=== PATIENT | male | born 1935 | race Caucasian/White ===

== ENCOUNTER 2016-05-10 12:02 | Observation (INO) | payer MEDICARE ==
[~2016-05-10] VITALS: Ht 177.8 cm; Wt 69.5 kg
[~2016-05-10 12:02] MED LIST: ASPI-973 PO
[2016-05-10 12:19] VITALS: BP 143/78; PULSE 85; RESP 16; O2SAT 95
--- NOTE | 2016-05-10 12:31 | ED.REPORT ---
HPI-Chest Pain 40 and Over Date of Service May 10, 2016 ED Provider: Doc,Ed MD Patient is a 81 year old male who presents to the ER via EMS complaining of intermittent chest pain. Pain began early this morning and increases with exertion. Pain became steady and radiated from the left to right side. As patient rested the pain subsided. Pt describes pain as a "small, sharp, pricking sensation." Pt went to [facility] and was sent here by Dr. Alfred Leonard. Pt also reports cough and mild congestion. Pt denies cough, fever, cold symptoms. He does not have a history of cardiac disease. Nursing Notes Stated Complaint: CHEST PAIN Chief Complaint: Chest Pain Nursing Notes Reviewed: Yes Allergies: Coded Allergies: No Known Allergies (Unverified , 05/10/16) Scheduled Aspirin (Aspirin) 81 Mg Tablet 81 MG PO DAILY General Time Seen by MD: 12:31 Chief Complaint Chest pain Hx Obtained From: Patient Arrived By: Ambulance Sudden in Onset?: Yes Onset Occurred: 1 - 4 hours ago Symptom Duration: Since onset Quality: Sharp, Stabbing Radiation: : Back Severity: Current: No pain currently Recent Healthcare: Recent doctor visit Past Medical History Past Medical History Denies: Diabetes mellitus, Hypertension Smoking History Unknown if Ever Smoker Social History Lives in [place] Other Social History: Ambulatory Status Independent Review of Systems Review of Systems Note: chest congestion Constitutional: Denies: Fever Respiratory: Reports: Non-productive cough Cardiovascular: Reports: Chest pain Complete sys rev & neg: except as marked. Physical Exam Initial Vital Signs Vital Signs (First) Date Time Temp Pulse Resp B/P Pulse Ox O2 Delivery O2 Flow Rate FiO2 05/10/16 12:19 36.7 85 16 143/78 95 Room Air Initial VS: Reviewed Head / Eyes: Atraumatic, Normocephalic, PERRL ENT: Mucous membranes moist, Conjunctiva normal, No scleral icterus Neck: Supple, Non-tender, Full range of motion Skin: Warm, Dry, No cyanosis Neurologic: Alert, Oriented, Nonfocal Psychiatric: Mood/affect normal, Behavior normal, Normal thought content General/Constitutional: Awake, Alert Respiratory / Chest: Atraumatic, Breath sounds NL, Breath sounds = bilat, No respiratory distress Cardiovascular: Regular rhythm, Heart sounds NL, No gallop, No murmurs, No rubs Abdomen: Atraumatic, Soft, Non-tender Interpretation & Diagnostics Lab Results Interpretation Result Diagram: 05/10/16 1227 05/10/16 1227 Test 05/10/16 12:27 White Blood Count 3.3th/mm3 (3.8-10.1) Red Blood Count 3.50mil/mm3 (4.40-5.80) Hemoglobin 10.8g/dL (13.8-17.2) Hematocrit 32.9% (41.0-50.0) Mean Corpuscular Volume 94.0fL (81-100) Mean Corpuscular Hemoglobin 30.9pg (27.0-35.0) Mean Corpuscular Hemoglobin Concent 32.8% (32.0-37.0) Red Cell Distribution Width 14.9% (12.3-15.4) Platelet Count 208bil/L (150-400) Neutrophils (%) (Auto) 51.0% (40-74) Lymphocytes (%) (Auto) 37.5% (14-46) Monocytes (%) (Auto) 8.5% (4-12) Eosinophils (%) (Auto) 2.4% (0-5) Basophils (%) (Auto) 0.6% (0-3) Sodium Level 137mEq/L (134-144) Potassium Level 4.8mEq/L (3.5-5.2) Chloride Level 98mEq/L (97-108) Carbon Dioxide Level 27mmol/L (18-29) Blood Urea Nitrogen 22mg/dL (8-27) Creatinine 0.72mg/dL (0.76-1.27) Estimat Glomerular Filtration Rate 111mL/min (>59) Glucose Level 102mg/dL (60-99) Calcium Level 9.2mg/dL (8.5-10.1) Magnesium Level 2.2mg/dL (1.6-2.6) Total Bilirubin 0.3mg/dL (0.0-1.2) Aspartate Amino Transf (AST/SGOT) 20U/L (0-50) Alanine Aminotransferase (ALT/SGPT) 13U/L (0-44) Alkaline Phosphatase 53U/L (25-160) Troponin T < 0.010ug/L (0.0-0.011) Total Protein 8.4g/dL (6.4-8.4) Albumin 3.7g/dL (3.4-5.0) Hold John Top Tube Received (Received) ECG Interpretation Time: 12:18 Interpreted by: ED physician Normal ECG Interpretation: Normal sinus rhythm (rate 80) Re-Eval/Medical Decision Time of Eval: 13:43 Re-Evaluation/Progress Note: Pt rechecked. Informed pt of need for admission. Pt understands and agrees with plan for admission. All questions addressed. Consultation : Referral / Consult Name: Osvaldo Tony MD Consulted With: Hospitalist Call Returned at: 13:44 Set Up Inspector: Will see patient, Agrees with eval, Accepts admit Counseled Regarding: Diagnosis, Lab results, Need for admission Discharge & Departure Primary Impression: Chest pain Chest pain type: unspecified Qualified Code: R07.9 - Chest pain, unspecified Disposition: ADMITTED TO HOSPITAL Discharge Condition All VS Reviewed: Yes Condition: Stable Referrals: Lupe Sanders (PCP) Scribe Attestation Portion of this note were transcribed by Deedee De La Rosa and Mike Tubbs. I, Dr. Gtz, personally performed the history, physcial exam, and medical decision- making: I reviewed and confirmed the accuracy for the information in the transcribed note. Signed by: mario Moyer, 05/06/16 [id number] copies to: Lupe Sanders Kirk H MD May 10, 2016 12:31 MIKE TUBBS May 10, 2016 12:45 MIKE TUBBS May 10, 2016 12:45
[2016-05-10 12:36] LABS: BASOPHILS % (AUTO) 0.6 % (0-3); EOSINOPHILS % (AUTO) 2.4 % (0-5); MONOCYTES % (AUTO) 8.5 % (4-12); Mean Corpuscular Hemoglobin 30.9 pg (27.0-35.0); Platelet Count 208 bil/L (150-400)
[2016-05-10 13:18] LABS: Magnesium 2.2 mg/dL (1.6-2.6)
[2016-05-10 13:20] LABS: TROPONIN T < 0.010 ug/L (0.0-0.011)
[2016-05-10] MEDS ORDERED: Ondansetron 2 mg/mL 2 mL Inj IVPUSH PRN ×2 (13:45→13:50)
[2016-05-10] MEDS ORDERED: Alum-Mag Hydrox-Simeth 30 mL Suspension PO PRN ×2 (13:45→13:50)
[2016-05-10] MEDS ORDERED: Atropine 1 mg/10 mL (Code) Syringe IVPUSH PRN (13:45)
[2016-05-10] MEDS ORDERED: Polyethylene Glycol (PEG) 17 Gm Powder PO PRN (13:45)
[2016-05-10] MEDS ORDERED: Senna-Docusate 8.6-50 mg Tablet PO PRN (13:45)
--- NOTE | 2016-05-10 13:52 | DRSVH ---
PROCEDURE: X-RAY CHEST, TWO VIEWS ([id number]) INDICATIONS: chest pain TECHNIQUE: 2 views of the chest were acquired. COMPARISON: None. FINDINGS: Surgical changes and devices: None. Lungs and pleura: No pleural effusions or pneumothorax. Lungs are clear. Mediastinum: Mediastinal contours are normal. Heart size is normal. Bones and chest wall: No suspicious bony abnormalities. Soft tissues appear unremarkable. IMPRESSION: No acute disease Dictated by: Marcial Ortiz M.D. on 05/10/2016 at 13:50 Approved by: Marcial Ortiz M.D. on 05/10/2016 at 13:50
[2016-05-10] MEDS ORDERED: MELA1TAB16 PO (13:55)
--- NOTE | 2016-05-10 14:06 | PCM.HPMED ---
Subjective Date of Service May 10, 2016 Primary Provider: Admitting Physician: Primary Care Physician: Ian Velazco MD Attending Physician: Admit Status: From the Emergency Department, 23-Hour Observation Chief Complaint: Chest Pain History of Present Illness: Patient is an 81 year old male with no past medical history who presents to the ER at [facility] complaining of chest pain. Pt states the pain began this morning. He states the pain is located in the center of his chest and seems to radiate to the left side of his chest. Pt denies associated shortness of breath, diaphoresis, nausea, palpitations, headache, and dizziness. Pt states his chest pain seems to last for several minutes and is exacerbated with activity and partially relieved with rest. Pt states the pain is a dull sensation. Pt does report recent cough and chest congestion. He denies any fever or chills. Pt has no other complaints or concerns at this time. Review of Systems: All systems reviewed and are negative except for what has already been mentioned in the HPI. Allergies Coded Allergies: No Known Allergies (Unverified , 05/10/16) Home Medications 1. Aspirin 81 mg PO daily PMH None Surgical History None Family History Pt denies any family history of CAD or AL. Social History Hx Alcohol Use: Yes (DAILY) Hx Substance Use: No Hx Tobacco Use: No Smoking Status: Never Smoker Exam Vital Signs Vital Sign - Last Date Time Temp Pulse Resp B/P Pulse Ox O2 Delivery O2 Flow Rate FiO2 05/10/16 12:19 36.7 85 16 143/78 95 Room Air Exam GENERAL: NAD, Pt laying in bed comfortably HEENT: AT/NC, PERRLA, EOMI, Mucus Membranes are moist CARDIAC: RRR; No M/R/G PULM: CTAB; No wheezes or rhonchi bilaterally ABD: Soft, Nontender, Nondistended, Positive bowel sounds in all quadrants, No Hepatosplenomegaly appreciated EXT: No C/C/E; No calf tenderness bilaterally SKIN: Warm, Dry, [place], and Intact NEURO: Alert and oriented x3; Following all commands PSYCH: Normal mood and affect Lab and Diagnostics Result Diagram: 05/10/16 1227 05/10/16 1227 X-Rays, CTs and MRIs X-RAY CHEST, TWO VIEWS INDICATIONS: chest pain TECHNIQUE: 2 views of the chest were acquired. COMPARISON: None. FINDINGS: Surgical changes and devices: None. Lungs and pleura: No pleural effusions or pneumothorax. Lungs are clear. Mediastinum: Mediastinal contours are normal. Heart size is normal. Bones and chest wall: No suspicious bony abnormalities. Soft tissues appear unremarkable. IMPRESSION: No acute disease 12-lead ECG EKG shows no ST or T wave changes indicative of myocardial ischemia. Assessment & Plan Patient is an 81 year old male with no past medical history who is admitted to hospital for chest pain. 1. Chest Pain - Rule out ACS - Admit under observation as anticipated LOS is less than 48 hours - Check serial cardiac enzymes q 6 hours x3 - Start Aspirin 81 mg PO daily - Start SL Nitroglycerin PRN for chest pain - Start Metoprolol 12.5 mg PO BID - Supplemental O2 to keep SpO2 greater than 92% - IV Morphine PRN for refractory chest pain - Will order a Lipid Panel for the AM - Will order an ECHO now - Will order a Lexiscan for the morning - Telemetry monitoring 2. Elevated Blood Pressure - Pt does not have a known hx of Hypertension however his BP is elevated today - Will start Metoprolol 12.5 mg PO BID, hold tonights dose for stress test in AM - Monitor BP closely 3. Prophylaxis - Lovenox 4. Disposition - Anticipate discharge to home in AM Osvaldo Tony MD May 10, 2016 14:06
[2016-05-10 15:17] VITALS: BP 143/81; PULSE 70; RESP 14; O2SAT 98
[2016-05-10 15:45] VITALS: PULSE 71
[2016-05-10] MEDS: 0.9% Sodium Chloride 1,000 ML IV SCH (15:55)
--- NOTE | 2016-05-10 16:10 | NUR ---
Admit Patient report called by Marla Rojas in ED. Patient arrived to room 3020 at 1500 via gurney and was able to self transfer to bed independently with no problems. Patient oriented to room, staff, call light system, television remote, bed controls, and visiting hours. Patient has a scabbed over scratch on right thumb. Patient denied any chest pain or discomfort and any pain. Patient administered NS@80mL/hr. Patient alert orientedX4. Patient has a wallet and was offered to place in safe, but wants to keep with him in room.
--- NOTE | 2016-05-10 16:16 | NUR ---
Metoprolol held Patient having NM stress test in the morning and Metoprolol was held for test.
--- NOTE | 2016-05-10 16:25 | PCM.CHPCAR ---
Consult Subjective Date of service May 10, 2016 Date of admit May 10, 2016 at 14:05 Provider Requesting Consult Primary Care Physician Primary Care Provider: Ian Velazco MD Chief Complaint # Crescendo Angina # HLD History of Present Illness BP:143/78mmHg HR: 70-85bpm 12 Lead ECG: Mr. Joe Amaral is a pleasant 81 y/o M with no previous cardiac history. The patient is a patient of Dr. Alfred Leonard at the [facility] and is transferred to the [facility] via EMS and admitted through the ED for evaluation of his SS chest pressure and HOLLIS. The patient relates a 3 wk hx of increasing HOLLIS while walking up a hill close to his home [place] [address]. The patient relates that today he was walking up a hill close to his home when he developed a 7/10 SSC Pressure and dyspnea that caused him to stop in his tracks. He stopped and he stood there and rested for several minutes and the SSC Pressure resolved. He turned and walked home without further CP. The patient then drove himself to the [facility] where he was seen urgently by Dr. Alfred Leonard. Mr. Amaral reports that he developed 1-2/10 SSC Pressure when walking from his car to the [facility]. The patient was subsequently taken from the [facility] to the [facility] and admitted with Crescendo Angina. The patient has remained completely chest pain pain free and comfortable in bed since arriving here at [facility]. Labs 05/10/2016 1. CBC: H/H 10.8/32.9 2. CMP: Na+ 137, K+ 4.8, B/C: 22/0.72 3. Troponin: Neg x 1 2D Echo (Pending 05/10/2016) Review of Systems Review of Systems Review of Systems Note: Constitutional: Denies: Fever Respiratory: Reports: Non-productive cough, chest congestion Cardiovascular: Reports: Chest pain Complete sys rev & neg: except as marked. PMH Past Medical History 1. R hand injury with loss of finger and mobility of fingers. Scheduled Aspirin (Aspirin) 81 Mg Tablet 81 MG PO DAILY (Reported) Melatonin/Pyridoxine (Melatonin 5 mg Tablet) 1 Each Tablet 1 EACH PO HS ( Reported) Current Inpatient Medications Current Medications Al Hydrox/Mg Hydrox/Simethicone 30 ml Q6 PRN PO; Start 05/10/16 at 13:50; Stop 05/10/16 at 14:18; Status DC Ondansetron HCl Dose range: 4 mg to 8 mg Q4H PRN IVPUSH; Start 05/10/16 at 13:50 ; Stop 05/10/16 at 14:19; Status DC Acetaminophen 975 mg Q6H PRN PO; Start 05/10/16 at 13:50; Stop 05/10/16 at 14:19 ; Status DC Enoxaparin Sodium 40 mg DAILY SUBQ; Start 05/10/16 at 14:00 Sodium Chloride 10 ml 10 ml NAREN IVFLUSH; Start 05/10/16 at 16:30 Sodium Chloride 1,000 ml @ 80 mls/hr [id number] IV Last administered on 05/10/16t 15:55; Admin Dose 80 MLS/HR; Start 05/10/16 at 13:44 Aspirin 81 mg DAILY PO; Start 05/11/16 at 08:30 Al Hydrox/Mg Hydrox/Simethicone 30 ml Q6H PRN PO; Start 05/10/16 at 13:45 Ondansetron HCl 4-8 mg prn nausea Q4H PRN IVPUSH; Start 05/10/16 at 13:45 Senna 1 tablet BID PRN PO; Start 05/10/16 at 13:45 Polyethylene Glycol 17 gm DAILY PRN PO; Start 05/10/16 at 13:45 Acetaminophen 325 mg Q6H PRN PO; Start 05/10/16 at 13:45 Nitroglycerin 0.4 mg Q5MIN PRN SL; Start 05/10/16 at 13:45 Morphine Sulfate 1-5 mg prn pain not relie... Q5M PRN IVPUSH; Start 05/10/16 at 13:45 Atropine Sulfate See above Q5MIN PRN IVPUSH; Start 05/10/16 at 13:45 Metoprolol Tartrate 12.5 mg BID PO; Start 05/10/16 at 13:55 Allergies: Coded Allergies: No Known Allergies (Unverified , 05/10/16) Social History Hx Alcohol Use: Yes (2 drinks a day)Hx Substance Use: NoHx Tobacco Use: No Smoking Status: Never Smoker Exam Vital Signs Vital Sign - Last Date Time Temp Pulse Resp B/P Pulse Ox O2 Delivery O2 Flow Rate FiO2 05/10/16 15:17 36.7 70 14 143/81 98 Room Air Objective General/Constitutional: Awake, Alert, Cooperative in NAD Head NC/AT Eyes: NON Icteric Oropharynx: No posterior pharyngeal erythema, mucous membranes moist. Neck: Supple, no JVD or HJR Respiratory / Chest: CTA Cardiovascular: RRR, NML S1/S2, no S3/S4, 2/6 ELIAN at the LVA Skin: Warm, Dry, or good turgor, no masses, rashes, No cyanosis Neurologic: Alert, Oriented, Nonfocal Psychiatric: Mood/affect normal, Behavior normal, Normal thought content Abdomen: Soft, flat, Non-tender, without masses, LKS LOCKS TENDER, + NABS all 4 quads, Extrems: no pretibial edema, warm dry, well perfused. Lab and Diagnostics Result Diagram: 05/10/16 1227 05/10/16 1227 Assessment & Plan Assessment # Kyleendo Angina: Mr. Amaral is an 81 y/o M with no prior history of heart disease that is admitted with accelerating exertional chest pain. Recommendations: 1. ETT Stress Sestamibi to evaluate the patients chest pain and to evaluate for a myocardial perfusion defect. 2. Hold Metoprolol tomorrow morning for the ETT. 3. If ETT shows a myocardial perfusion defect, he will need a cardiac catheterization to evaluate his coronary anatomy. 4. STAT 12 Lead ECG if redevelops any chest discomfort. Cardiology Plan: Other (ETT Stress Sestamibi to evaluate for CP and to evaluate for Myocardial Perfusion defect.) Pain Evaluation: Adequate Pain Control VTE Prophylaxis Indicated: Meets Criteria for Anticoag Therapy VTE Prophylaxis: Sub-Q Enoxaparin Resuscitation Status: CPR: Attempt Resuscitation Brad Briceno PA-C May 10, 2016 16:25
[2016-05-10] MEDS: Sodium Chloride LOK Flush 10 mL Syringe IVFLUSH SCH (16:30)
[2016-05-10 17:13] VITALS: BP 165/89; PULSE 70; RESP 14; O2SAT 98
--- NOTE | 2016-05-10 17:39 | DRSVH ---
[facility] [address] [place] [place] [address] Echocardiogram Report Name: EPIFANIO FONSECA LStudy Date: 05/10/2016 Height: 70 in Hospital Exam Location: [facility] Weight: 160 lb Gender: Male BSA: 1.9 m2 : 1935 Age: 81 yrs BP: 143/78 mmHg Reason For Study: Chest pain Ordering Physician: Performed By: Brittany Lao Referring Physician: Key Velazco Interpretation Summary The left ventricle is normal in size. The ejection fraction is estimated to be 60-65%. The right ventricle is normal in size and function. There is mild mitral regurgitation. The aortic valve is moderately calcified. Leaflet mobility is mildly reduced. The peak aortic velocity is 273 m/sec. The aortic valve mean gradient is 14 mmHg. There is mild aortic stenosis. There is mild to moderate aortic regurgitation. There is mild tricuspid regurgitation. The right ventricular systolic pressure is estimated at 34 mmHg assuming a right atrial pressure of 3 mm Hg. The ascending aorta is mildly enlarged. Procedure: A two-dimensional transthoracic echocardiogram with color flow and Doppler was performed. There is no prior echocardiogram noted for this patient. The study quality was technically adequate. The patient was in normal sinus rhythm during the exam. Left Ventricle: The left ventricle is normal in size. Proximal septal thickening is noted. There is no echo evidence for significant left ventricular outflow tract obstruction. There is no thrombus. The ejection fraction is estimated to be 60-65%. There are no focal wall motion abnormalities. Spectral Doppler of the mitral valve is reversed, with an E/A wave ratio < 0.8. Spectral Doppler of the mitral valve is reversed, with an E/A wave ratio < 1.0. Right Ventricle: The right ventricle is normal in size and function. Atria: The left atrium is mildly dilated. The right atrium is normal in size. The interatrial septum is intact with no evidence for an atrial septal defect. There is no Doppler evidence for an interatrial shunt. Mitral Valve: The mitral valve leaflets are moderately calcified. The mitral valve chordae are thickened and/or calcified. There is mild mitral annular calcification. No significant mitral valve stenosis. There is mild mitral regurgitation. Aortic Valve: The aortic valve is trileaflet. The aortic valve is moderately calcified. Leaflet mobility is mildly reduced. The calculated aortic valve area is 1.4 cm2. The peak aortic velocity is 273 m/sec. The aortic valve mean gradient is 14 mmHg. There is mild aortic stenosis. There is mild to moderate aortic regurgitation. Tricuspid Valve: The tricuspid valve is normal. There is mild tricuspid regurgitation. The right ventricular systolic pressure is estimated at 34 mmHg assuming a right atrial pressure of 3 mm Hg. Pulmonic Valve: The pulmonic valve is not well seen, but is grossly normal. There is trace pulmonic regurgitation. Great Vessels: The aortic root is normal size. The ascending aorta is mildly enlarged. The aortic arch could not be visualized. The IVC is of normal diameter and collapses greater than 50% with a sniff. This suggests a low right atrial pressure of 3 mm Hg. Pericardium/ Pleura There is no pericardial effusion. MMode/2D Measurements & Calculations LVIDd: 4.7 cm LA dimension: 3.9 cm RA long axis LVOT diam LVIDs: 3.5 cm FS: 25.7 % LA A2 area: 23.0 cm RA area AoV Opening EPSS: 0.72 cm LA A4 area: 19.3 cm IVSd: 0.84 cm LA length (vol): 5.1 cm: 15.2 cm Ao root diam LVPWd: 0.87 cm LA vol: 73.9 ml RA vol LA vol index : 40.5 ml Aortic Jxn RA : 21.3 mm2 asc Aorta IVC diam: 1.6 cm Diam: 3.8 cm LV engel. diameter/BSA LV sys. diameter/BSA RVD1 (basal) TAPSE: 2.7 cm (cm/m^2): 2.5 (cm/m^2): 1.8 Doppler Measurements & Calculations Ao V2 max MV E max ian MV E/A: 0.76 TR max ian : 272.5 cm/sec : 77.2 cm/sec Med Peak E' Ian : 278.1 cm/sec Ao max PG MV A max ian TR max PG : 29.7 mmHg : 101.3 cm/sec E/E' med: 12.0 : 30.9 mmHg Ao mean PG MV P1/2t: 65.9 msec Pulm A Revs Dur PA V2 max : 14.0 mmHg : 70.0 cm/sec LVOT Max Ian MV A dur: 0.12 sec PA mean PG : 98.8 cm/sec PA Accel Time MIRIAN(I,D): 1.4 cm : 0.16 sec sev ratio AI P1/2t : 457.5 msec AI dec slope : 292.4 cm/s2c MV dec time MV P1/2t max ian Ao V2 mean LV V1 max PG : 0.23 sec : 171.6 cm/sec MVA(P1/2t): 3.3 cm2 Ao V2 VTI: 59.6 cm LV V1 VTI MIRIAN(V,D): 1.5 cm2 : 19.9 cm PA V2 mean MIRIAN indexed to BSA Pulm A Revs Dur - MV : 50.3 cm/sec (cm^2/m^2): 0.72 A Dur: -0.03 msec Reading Physician:PM
--- NOTE | 2016-05-10 21:34 | CONS ---
[address] [address] CONSULTATION REPORT PATIENT: EPIFANIO FONSECA : 1935 MR#: [id number] ADMIT: 05/10/2016 JOB ID: [id number] DATE OF SERVICE: 05/10/2016 REQUESTED BY: Dr. Tony, I saw and examined the patient. Please see Brad Briceno's notes for details. IMPRESSION: 1. Chest discomfort of uncertain etiology. 2. Hypercholesterolemia. 3. Mild aortic stenosis with mild to moderate aortic regurgitation. 4. Mild mitral regurgitation. 5. Anemia. PLAN: The cause of his chest discomfort remains uncertain. His cardiac enzymes and EKG were all normal. The patient has never smoked. He will undergo exercise stress sestamibi tomorrow to evaluate myocardial perfusion and risk stratification. Thank you for allowing me to participate in his care. KIEL
[2016-05-10 21:35] VITALS: BP 136/71; PULSE 63; RESP 16; O2SAT 100
[2016-05-10 23:02] VITALS: PULSE 69
[2016-05-11] MEDS: Sodium Chloride LOK Flush 10 mL Syringe IVFLUSH SCH ×2 (00:30→11:15)
[2016-05-11 01:02] VITALS: BP 142/70; PULSE 77; RESP 16; O2SAT 98
[2016-05-11] MEDS: 0.9% Sodium Chloride 1,000 ML IV SCH (04:37)
--- NOTE | 2016-05-11 05:04 | NUR ---
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 No c/o chest pain/pain/sob. Evening dose of Metoprolol held for Jeannie test in AM, will pass on to next shift.
[2016-05-11 05:08] VITALS: BP 128/65; PULSE 71; RESP 16; O2SAT 98
[2016-05-11 06:06] LABS: BASOPHILS % (AUTO) 0.7 % (0-3); EOSINOPHILS % (AUTO) 4.6 % (0-5); MONOCYTES % (AUTO) 10.2 % (4-12); Mean Corpuscular Volume 93.9 fL (81-100); NEUTROPHILS % (AUTO) 36.3 % (40-74); Platelet Count 212 bil/L (150-400)
[2016-05-11 07:26] LABS: TROPONIN T < 0.010 ug/L (0.0-0.011)
[2016-05-11 08:00] VITALS: PULSE 69
[2016-05-11 08:52] VITALS: BP 132/78; PULSE 75; RESP 17; O2SAT 98
--- NOTE | 2016-05-11 09:02 | PCM.PNCARD ---
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 Joe Amaral is a pleasant 81 y/o M with no previous cardiac history. The patient is a patient of Dr. Alfred Leonard at the [facility] and is transferred to the [facility] via EMS and admitted through the ED for evaluation of his SS chest pressure and HOLLIS. The patient relates a 3 wk hx of increasing HOLLIS while walking up a hill close to his home on [address]. The patient relates that today he was walking up a hill close to his home when he developed a 7/10 SSC Pressure and dyspnea that caused him to stop in his tracks. He stopped and he stood there and rested for several minutes and the SSC Pressure resolved. He turned and walked home without further CP. The patient then drove himself to the [facility] where he was seen urgently by Dr. Alfred Leonard. Mr. Amaral reports that he developed 1-2/10 SSC Pressure when walking from his car in the parking lot to the [facility] entrance. The patient was subsequently taken from the [facility] via ambulance to the [facility] and admitted for evaluation of his chest pain of unclear etiology. The patient has remained completely chest pain pain free and comfortable in bed since arriving here at [facility]. Labs: 05/11/2016 1. CMP: Na+ 138, K+ 4.5, B/C: 16 / 0.64 2. Total cholesterol 117, LDL 48.40, VLDL 17.60, HDL 51, triglycerides 88 3. Troponin: Neg x 2 4. CBC stable without significant change 2D Echo ( 05/10/2016) The left ventricle is normal in size. The ejection fraction is estimated to be 60-65%. The right ventricle is normal in size and function. There is mild mitral regurgitation. There is mild aortic stenosis. The aortic valve is moderately calcified. Leaflet mobility is mildly reduced. The peak aortic velocity is 273 m/sec. The aortic valve mean gradient is 14 mmHg. There is mild to moderate aortic regurgitation. There is mild tricuspid regurgitation. The right ventricular systolic pressure is estimated at 34 mmHg assuming a right atrial pressure of 3 mm Hg. The ascending aorta is mildly enlarged. Subjective: Patient reports that he is doing well without any type of chest discomfort overnight. He denies shortness of breath, PND/orthopnea, no palpitations, no dizziness, lightheadedness, presyncope or syncopal episodes, no lower extremity swelling. Additional Information: Constitutional: Denies: Fever Respiratory: Reports: Non-productive cough, chest congestion Cardiovascular: Reports: Chest pain Chest: Atraumatic, nontender to palpation Complete sys rev & neg: except as marked. Exam Vital Signs Vital Sign - Last Date Time Temp Pulse Resp B/P Pulse Ox O2 Delivery O2 Flow Rate FiO2 05/11/16 05:08 36.4 71 16 128/65 98 Room Air Intake and Output 05/10/16 05/10/16 05/11/16 Cumulative From/Thru 15:00 23:00 07:00 05/10/16 12:19 - 05/11/16 06:27 Intake Total 777 ml 1539 ml 2316 ml Output Total 400 ml 600 ml 1000 ml Balance 377 ml 939 ml 1316 ml Intake Oral 537 ml 400 ml 937 ml IV Total 240 ml 1139 ml 1379 ml Output Urine Total 400 ml 600 ml 1000 ml # Bowel Movements 1 1 Additional Information: General/Constitutional: Awake, Alert, Cooperative in NAD Head NC/AT Eyes: NON Icteric Oropharynx: No posterior pharyngeal erythema, mucous membranes moist. Tongue midline and mobile Neck: Supple, no JVD or HJR Respiratory / Chest: CTA Cardiovascular: RRR, NML S1/S2, no S3/S4, 2/6 ELIAN at the [facility] Skin: Warm, Dry, or good turgor, no masses, rashes, No cyanosis Neurologic: Alert, Oriented, Nonfocal Psychiatric: Mood/affect normal, Behavior normal, Normal thought content Abdomen: Soft, flat, Non-tender, without masses, [employer], + NABS all 4 quads, Extrems: no pretibial edema, warm dry, well perfused. Lab and Diagnostics Result Diagram: 05/11/1651905/11/16519 Assessment & Plan Assessment #Chest pain of unclear etiology: Mr. Amaral is an 81 y/o M with no prior history of heart disease that is admitted with chest pain of unclear mechanism. Recommendations: 1. ETT Stress Sestamibi today to evaluate the patients chest pain and to evaluate for a myocardial perfusion defect. 2. Hold Metoprolol this morning prior to the ETT. 3. If ETT shows a myocardial perfusion defect, he will need a cardiac catheterization to evaluate his coronary anatomy. Problems: Cardiology Plan: Other (ETT Stress Sestamibi to evaluate for CP and to evaluate for Myocardial Perfusion defect.) Pain Evaluation: Adequate Pain Control VTE Prophylaxis: Sub-Q Enoxaparin VTE Mechanical Devices: Intermittant Pneumatic CD Resuscitation Status: CPR: Attempt Resuscitation Brad Briceno PA-C May 11, 2016 09:02
--- NOTE | 2016-05-11 09:10 | NUR ---
all morning meds held for stress test pt off floor for testing
--- NOTE | 2016-05-11 11:29 | NUR ---
Social Work-initial assessment/readiness for discharge: Data:See initial assessment. pt is a 81 y/o male who was admitted on 05/10/16 for chest pain resolved per H&P. Pt's insurance is [employer] and PCP is Ian Velazco MD.EMR Reviewed. Pt's readmission score is 0. SW met with pt at bedside to discuss discharge planning, SW role explained. Pt is alert and oriented x3. Pt resides at home with his where he remains independent with ADLS. Pt does not use any DME and drives. Pt has no HH or SNF history. Pt has no [facility] care insurance or VA benefits. SW discussed DPOA/ advanced directive with pt, pt states he has completed this, SW encouraged pt to bring a copy into the hospital. Per RN notes, pt has been up independent in his room. Pt to have jenniffer scan today and may discharge later today. Pt states his son will provide transport home at discharge. Pt states he helps care for his at home, cooking cleaning, and managing her medications. Pt has neighbor assisting while he is gone.SW provided phone number and plan on white board in room. No anticipated discharge needs. SW will continue to follow if needs arise. Assessment:pt who is independent at baseline. Plan:Pt to discharge home when medically stable via POV. No anticipated discharge needs. SW will continue to follow if needs arise. JOSE RAUL Mckinley Addendum: 05/11/16 at 1133 by ARLETH WILLETT SS Amended: Links added.
--- NOTE | 2016-05-11 14:03 | DRSVH ---
PROCEDURE: 1 DAY TREADMILL STRESS TEST Rest and exercise myocardial perfusion SPECT with gated imaging and ejection fraction RADIOPHARMACEUTICAL: 7.6 mCi Tc-99m tetrafosmin IV at rest and 25.9 mCi Tc-99m tetrafosmin IV at pea k exercise. [id number] was performed. INDICATIONS: CHEST PAIN TECHNIQUE: Radiopharmaceutical was injected at peak stress test, and also at rest. SPECT images wer e obtained. SPECT myocardial perfusion images were displayed in short axis, horizontal long axis, an d vertical long axis views. Gated images were reviewed using [employer] software. COMPARISON: None. CARDIAC STRESS: A standard [place] treadmill exercise tolerance test was performed by the patient under the supervision of an attending staff. The patient exercised for 3 minutes and 33 seconds Hemodynamic data: There is normal blood pressure and somewhat accelerated heart rate response to ex ercise stress. Patient achieved 106% of maximum predicted heart rate at peak exercise. Symptoms: Patient reported chest pain in the right chest EKG: No diagnostic EKG changes of ischemia; rare ectopy FINDINGS: Raw data: There is good myocardial labeling by radiotracer. No significant motion artifacts. Left ventricle function: Gated images demonstrate normal left ventricle wall thickening. No segment al wall motion abnormality. Left ventricular end-diastolic volume is 100ccmL. Left ventricle stress ejection fraction is 63% ; normal values are above 45%. Myocardial perfusion: There is a very small area of mildly decreased uptake affecting the basal infe roseptal wall that appears fixed on the rest and stress images. This area moves/thickens on the gate d images and is more likely related to attenuation artifact. No other imaging defects are appreciate d. IMPRESSION: 1. Appropriate blood pressure and somewhat accelerated heart rate response to exercise. 2. The patient reported mild chest discomfort affecting the right parasternal area. There were no si gnificant ECG changes with stress. 3. No scintigraphic evidence for significant areas of myocardial ischemia at the level of stress achi eved. 4. Normal left ventricular size and systolic function. Dictated by: Heather Serna M.D. on 05/11/2016 at 14:01 Approved by: Heather Serna M.D. on 05/11/2016 at 14:01
[2016-05-11 14:20] VITALS: BP 128/79; PULSE 75; RESP 16; O2SAT 98
--- NOTE | 2016-05-11 15:25 | PCM.DIMED ---
Dave Lucas DO 05/11/16 1525: Discharge Instructions Date of Service May 11, 2016 Dates of Hospitalization May 10, 2016 at 14:05 Discharge Diagnosis Discharge Diagnosis 1. Chest Pain, resolved -Based upon your vitals, EKG, myocardial ischemic biomarkers (troponin), and stress testing. You do not have a heart attack. There are no evidences of coronary ischemia. -You should however, need to contact your primary care provider within 1wk for a hospital follow-up visit. We like to ensure you are doing well -Continue to take your aspirin 81mg daily 2. Elevated Blood Pressure, resolved Test Results Lipid panel as below Triglycerides 88, normal is 0-149 Cholesterol 117 LDL cholesterol calculated 48.4, normal is 0-99 VLDL cholesterol 17.46 HDL cholesterol 51, normal is greater than 39 Cholesterol/HDL ratio 2.29, normal is 0-4.4 Diet Heart Healthy Activity No restrictions Call your provider Shortness of breath, Chest pain, Weakness (unilateral) Patient Instructions Follow-up Provider: Ian Velazco MD Follow-up with PCP in: 1 week Osvaldo Tony MD 05/12/16 1053: Dave Lucas DO May 11, 2016 15:25 Osvaldo Tony MD May 12, 2016 10:53
--- NOTE | 2016-05-11 15:40 | NUR ---
discharge paperwork reviewed, no questions at this time pt denies pain/distress pt chooses to walk downstairs to private car to return home on [address]
--- NOTE | 2016-05-11 15:48 | NUR ---
Social Work-discharge: Data:EMR reviewed. Pt is on day 1 of hospitalization for chest pain. Pt is ready to discharge home. SW confirmed with pt of plan for home, no needs. Pt's friend to provide transport home. No discharge needs identified. All updated and agreeable to plan. Assessment:Pt who is independent at baseline. Plan:Pt to discharge home today via POV. No discharge needs identified. All updated and agreeable to plan. JOSE RAUL Mckinley
[2016-05-11 17:08] VITALS: BP 126/78; PULSE 77; RESP 17; O2SAT 96
--- NOTE | 2016-05-12 21:30 | PCM.DC.MED ---
Discharge Summary Date of Service May 12, 2016 Dates of Hospitalization Date of Hospital Admission May 10, 2016 at 14:05 Date of Discharge: May 12, 2016 Providers: Admitting Physician: Osvaldo Tony MD Primary Care Physician: Ian Velazco MD Attending Physician: Osvaldo Tony MD Diagnosis at Time of Discharge Diagnosis at Time of Discharge 1. Chest Pain, resolved -Based upon your vitals, EKG, myocardial ischemic biomarkers (troponin), and stress testing. You do not have a heart attack. There are no evidences of coronary ischemia. -You should however, need to contact your primary care provider within 1wk for a hospital follow-up visit. We like to ensure you are doing well -Continue to take your aspirin 81mg daily 2. Elevated Blood Pressure, resolved Procedures XRay, CTs & MRIs X-RAY CHEST, TWO VIEWS INDICATIONS: chest pain FINDINGS: Surgical changes and devices: None. Lungs and pleura: No pleural effusions or pneumothorax. Lungs are clear. Mediastinum: Mediastinal contours are normal. Heart size is normal. Bones and chest wall: No suspicious bony abnormalities. Soft tissues appear unremarkable. IMPRESSION: No acute disease PROCEDURE: 1 DAY TREADMILL STRESS TEST Rest and exercise myocardial perfusion SPECT with gated imaging and ejection fraction RADIOPHARMACEUTICAL: 7.6 mCi Tc-99m tetrafosmin IV at rest and 25.9 mCi Tc-99m tetrafosmin IV at peak exercise. [id number] was performed. INDICATIONS: CHEST PAIN CARDIAC STRESS: A standard [place] treadmill exercise tolerance test was performed by the patient under the supervision of an attending staff. The patient exercised for 3 minutes and 33 seconds Hemodynamic data: There is normal blood pressure and somewhat accelerated heart rate response to exercise stress. Patient achieved 106% of maximum predicted heart rate at peak exercise. Symptoms: Patient reported chest pain in the right chest EKG: No diagnostic EKG changes of ischemia; rare ectopy FINDINGS: Raw data: There is good myocardial labeling by radiotracer. No significant motion artifacts. Left ventricle function: Gated images demonstrate normal left ventricle wall thickening. No segmental wall motion abnormality. Left ventricular end- diastolic volume is 100ccmL. Left ventricle stress ejection fraction is 63% ; normal values are above 45%. Myocardial perfusion: There is a very small area of mildly decreased uptake affecting the basal inferoseptal wall that appears fixed on the rest and stress images. This area moves/thickens on the gated images and is more likely related to attenuation artifact. No other imaging defects are appreciated. IMPRESSION: 1. Appropriate blood pressure and somewhat accelerated heart rate response to exercise. 2. The patient reported mild chest discomfort affecting the right parasternal area. There were no significant ECG changes with stress. 3. No scintigraphic evidence for significant areas of myocardial ischemia at the level of stress achieved. 4. Normal left ventricular size and systolic function. Dictated by: Heather Serna M.D. on 05/11/2016 at 14:01 ECG 12 Lead EKG shows no ST or T wave changes indicative of myocardial ischemia. Cardiac Echo Impression Echocardiogram Interpretation Summary The left ventricle is normal in size. The ejection fraction is estimated to be 60-65%. The right ventricle is normal in size and function. There is mild mitral regurgitation. The aortic valve is moderately calcified. Leaflet mobility is mildly reduced. The peak aortic velocity is 273 m/sec. The aortic valve mean gradient is 14 mmHg. There is mild aortic stenosis. There is mild to moderate aortic regurgitation. There is mild tricuspid regurgitation. The right ventricular systolic pressure is estimated at 34 mmHg assuming a right atrial pressure of 3 mm Hg. The ascending aorta is mildly enlarged. Brief History BP: 128-165 / 65-89 mmHg, HR: 63-77 bpm 12 Lead ECG: NSR without any evidence of ischemia or myocardial infarction Mr. Joe Amaral is a pleasant 81 y/o M with no previous cardiac history. The patient is a patient of Dr. Alfred Leonard at the [facility] and is transferred to the [facility] via EMS and admitted through the ED for evaluation of his SS chest pressure and HOLLIS. The patient relates a 3 wk hx of increasing HOLLIS while walking up a hill close to his home on [address]. The patient relates that today he was walking up a hill close to his home when he developed a 7/10 SSC Pressure and dyspnea that caused him to stop in his tracks. He stopped and he stood there and rested for several minutes and the SSC Pressure resolved. He turned and walked home without further CP. The patient then drove himself to the [facility] where he was seen urgently by Dr. Alfred Leonard. Mr. Amaral reports that he developed 1-2/10 SSC Pressure when walking from his car in the parking lot to the [facility] entrance. The patient was subsequently taken from the [facility] via ambulance to the [facility] and admitted for evaluation of his chest pain of unclear etiology. The patient has remained completely chest pain pain free and comfortable in bed since arriving here at [facility]. Labs: 05/11/2016 1. CMP: Na+ 138, K+ 4.5, B/C: 16 / 0.64 2. Total cholesterol 117, LDL 48.40, VLDL 17.60, HDL 51, triglycerides 88 3. Troponin: Neg x 2 4. CBC stable without significant change 2D Echo ( 05/10/2016) The left ventricle is normal in size. The ejection fraction is estimated to be 60-65%. The right ventricle is normal in size and function. There is mild mitral regurgitation. There is mild aortic stenosis. The aortic valve is moderately calcified. Leaflet mobility is mildly reduced. The peak aortic velocity is 273 m/sec. The aortic valve mean gradient is 14 mmHg. There is mild to moderate aortic regurgitation. There is mild tricuspid regurgitation. The right ventricular systolic pressure is estimated at 34 mmHg assuming a right atrial pressure of 3 mm Hg. The ascending aorta is mildly enlarged. Hospital Course Patient is an 81 year old male with no past medical history who is admitted to hospital for chest pain. 1. Chest Pain - EKG normal sinus, trops negative, unremarkable echocardiogram, and stress test NM also without signs of ischemia - Patient is discharged with aspirin. - Advise to follow-up with PCP within 1 wks. 2. Elevated Blood Pressure - SBP 140's/80's. trended down to 120's/80's with 2 dose of metopolol. - Suggest patient monitor BP. No BP meds on discharge as patient is without comorbidities. - Goals of BP <150/90. Exam Vital Signs (Last) Date Time Temp Pulse Resp B/P Pulse Ox O2 Delivery O2 Flow Rate FiO2 05/11/16 17:08 36.7 77 17 126/78 96 Room Air Test 05/10/16 12:27 05/10/16 19:56 05/11/16 05:20 Hemoglobin A1c 5.5% (4.8-5.6) Magnesium Level 2.2mg/dL (1.6-2.6) Total Bilirubin 0.3mg/dL (0.0-1.2) Aspartate Amino Transf (AST/SGOT) 20U/L (0-50) Alanine Aminotransferase (ALT/SGPT) 13U/L (0-44) Alkaline Phosphatase 53U/L (25-160) Total Protein 8.4g/dL (6.4-8.4) Albumin 3.7g/dL (3.4-5.0) Thyroid Stimulating Hormone (TSH) 2.430uIU/mL (0.450-4.500) Hold John Top Tube Received (Received) Total Creatine Kinase 45U/L (21-232) Creatine Kinase MB 1.9ng/mL (0.0-10.4) Creatine Kinase MB % 4.2% (0.0-5.0) White Blood Count 2.8th/mm3 (3.8-10.1) Red Blood Count 3.60mil/mm3 (4.40-5.80) Hemoglobin 10.8g/dL (13.8-17.2) Hematocrit 33.8% (41.0-50.0) Mean Corpuscular Volume 93.9fL (81-100) Mean Corpuscular Hemoglobin 30.0pg (27.0-35.0) Mean Corpuscular Hemoglobin Concent 32.0% (32.0-37.0) Red Cell Distribution Width 14.9% (12.3-15.4) Platelet Count 212bil/L (150-400) Neutrophils (%) (Auto) 36.3% (40-74) Lymphocytes (%) (Auto) 48.2% (14-46) Monocytes (%) (Auto) 10.2% (4-12) Eosinophils (%) (Auto) 4.6% (0-5) Basophils (%) (Auto) 0.7% (0-3) Sodium Level 138mEq/L (134-144) Potassium Level 4.5mEq/L (3.5-5.2) Chloride Level 101mEq/L (97-108) Carbon Dioxide Level 25mmol/L (18-29) Blood Urea Nitrogen 16mg/dL (8-27) Creatinine 0.64mg/dL (0.76-1.27) Estimat Glomerular Filtration Rate 127mL/min (>59) Glucose Level 104mg/dL (60-99) Calcium Level 8.9mg/dL (8.5-10.1) Troponin T < 0.010ug/L (0.0-0.011) Triglycerides Level 88mg/dL (0-149) Cholesterol Level 117mg/dL (100-199) LDL Cholesterol, Calculated 48.400mg/dL (0-99) VLDL Cholesterol 17.600mg/dL HDL Cholesterol 51mg/dL (>39) Cholesterol/HDL Ratio 2.29 (0.0-4.4) Discharge Medications Discharge Medications Aspirin (Aspirin) 81 Mg Tablet 81 MG PO DAILY (Reported) Melatonin/Pyridoxine (Melatonin 5 mg Tablet) 1 Each Tablet 1 EACH PO HS ( Reported) Followup Plan Discharge Diet: Heart Healthy Discharge Activity: No restrictions Follow-up Provider: Ian Velazco MD Follow-up with PCP in: 1 week Attending Statement The patient was seen and examined together with Dr. Dave Lucas on 05/11/2016 and I agree with the history, exam and plan as outlined in the note above. copies to: Ian Velazco MD, Phuc H DO May 12, 2016 21:30 Osvaldo Tony MD May 13, 2016 13:14
[2016-10-08] MEDS ORDERED: POLY17PO6 PO (14:33)
== END 2016-05-11 15:39 | disposition home or self-care (01) ==
LOC: SED 12:02 → EDUNIT# 12:02 → EDBD 12:02 → MPC 14:05
PROVIDERS: ADMIT Family Medicine; ATTEND Family Medicine
DX: R07.9 Chest pain, unspecified (principal); R03.0 Elevated blood-pressure reading, without diagnosis of hypertension; Z79.82 Long term (current) use of aspirin
CPT/HCPCS: 36415; 71020; 78452; 80048; 80053; 80061; 82550; 82553; 83036; 83735; 84443; 84484; 85025; 93005; 93017; A9502; C8929; G0378; J1650; J7030

== ENCOUNTER 2016-09-23 05:35 | Day surgery (SDC) | payer MEDICARE ==
[~2016-09-23] VITALS: Ht 177.8 cm; Wt 69.7 kg
[2016-09-23] VITALS (8 sets, daily range): BP systolic 132–155; BP diastolic 57–76; PULSE 68–81; RESP 10–17; O2SAT 96–100
[~2016-09-23 05:35] MED LIST changes: +MELA1TAB16 PO
[2016-09-23] MEDS ORDERED: Propofol 10,000 mCg/mL 20 mL Inj ONE (05:36)
[2016-09-23] MEDS ORDERED: Ondansetron 2 mg/mL 2 mL Inj ONE (05:36)
[2016-09-23] MEDS ORDERED: Dexamethasone 4 mg/mL Inj ONE (05:36)
[2016-09-23] MEDS ORDERED: fentaNYL-PF 50 mCg/mL 2 mL Inj ONE (05:36)
[2016-09-23] MEDS: Lactated Ringer's 1,000 ML IV SCH ×2 (05:50→07:23)
[2016-09-23] MEDS ORDERED: CeFAZolin Inj 2 GM in IV Premix 1 EACH IV SCH (06:00)
--- NOTE | 2016-09-23 06:37 | PCM.HPANE ---
Patient Data Surgeon Admitting Provider: Attending Provider:Yaz Wilson MD Primary Care Physician:Panfilo Bass DO Other Provider:Edilia Olearyingham Anesthesia Reason for Visit Left Hydrocele Ht/WT & BMI Height (Feet): 5 Height (Inches): 10 Weight (Kilograms): 69.7 Body Mass Index 21.00 Allergies Coded Allergies: No Known Allergies (Verified Allergy, Unknown, 09/21/16) Past Anesthesia History Anesthesia History: Positive for:: Anesthesia Reactions ("i get a hangover after "), Denies:: Abnormal Airway, Difficult Intubation, Fam Anesthesia Reaction, Fam Malignant Hypertherm, Malignant Hyperthermia Diabetes History Hx Diabetes?: No MRSA MRSA: No Medications Blood Thinner: Aspirin Home Meds Incl Beta Lana: No Reported Medications Melatonin/Pyridoxine (Melatonin 5 mg Tablet)1 Each Tablet1 Each PO HS 05/10/16 Aspirin 81 Mg [id number] Mg PO DAILY Ref 0 12/03/15 History History of ENT Problems?: Yes HEENT History: Positive for:: Hearing Problem Denies:: Abnormal Airway Cataracts Difficult Intubation Dysphagia Sinus Problem Denture Type: None Teeth Condition: Within Normal Limits Hx of Heart Problems?: Yes Cardiovascular History: Denies:: Congestive Heart Failure Hypertension Other Cardiac History: mild aortic stenosis and regurg Hx of Respiratory Problem?: No Respiratory History: Denies:: Tuberculosis Hx Neurologic Problems?: No Neurological History: Denies:: CVA Hx of GI Problems?: Yes Hx of Problems?: Yes Other Pertinent History: left hyrdrocele Male Hx: Positive for:: Prostate Problems Denies:: Scrotal Mass Testicular Surgery Skin History: Denies:: History Skin Disorders? Pressure Ulcers Hx Musculoskeletal Problems?: No Musculoskeletal History: Denies:: Back Injury Joint Replacement Musculoskeletal Trauma Hx of Psycho/Social Problems?: No Hx Surgeries?: Yes (appendix, hand surgery) Hx Any Other Health Problems?: Yes Other History: Positive for:: Hospitalization Denies:: Cancer Thyroid Disease History Blood Transfusions: Denies:: Blood Transfuse Reaction Blood Transfusions Hx Diabetes: No Hx Alcohol Use: Yes (2 drinks a day)Hx Substance Use: No Smoking Status: Never Smoker Have You Smoked inLast 12 mo: No Stop/Bang S-Snoring: Do You Snore Loudly: No T-Tired: feel tired, fatigued: No O-Obsered: Observed not breath: No P-Blood Pressure: treated: No B- Body Mass Index > 35 kg/m2: No A- Age over 50: Yes N- Neck Large Circumference: No G- Gender Male: Yes REYNALDO Total Score: 2 REYNALDO Risk Assessment: Low Risk, <3 Yes Risk Assessment Category Category 1A: Patient has history of documented sleep apnea, and HAS NOT received any narcotic, sedative or anesthesia administration during this stay. Category 1B: Patient has history of documented sleep apnea, and HAS received any narcotic , sedative or anesthesia administration during this stay Category 2: Patient has SUSPECTED Obstructive Sleep Apnea, and HAS received any narcotic , sedative or anesthesia administration during this stay. Category 3: Patient has SUSPECTED Obstructive Sleep Apnea and HAS NOT received narcotic, sedative or anesthesia administration during this stay. Category 4: Outpatient in Procedural Areas with known sleep apnea or who screen positive for High Risk via the STOP/BANG questionnaire. Exam Exam Vital Signs Vital Signs Date Time Temp Pulse Resp B/P Pulse Ox O2 Delivery O2 Flow Rate FiO2 09/23/16 05:57 36.2 81 16 132/71 98 Room Air General Appearance: Alert, Oriented X3, Cooperative, No Acute Distress HEENT/AIRWAY: MP 2 Lungs: Clear to Auscultation, Normal Air Movement Heart: Exam Unremarkable, Regular Rate/Rhythm, No Murmurs/Rubs/Gallops Meds/Labs/Diagnostics Admission Meds Current Medications Lactated Ringer's (Lr) 1,000 ml @ 120 mls/hr [id number] IV Last administered on t 05:50; Start 09/23/16 at 05:00; Stop 09/23/16 at 13:19 Plan Impression Patient chart reviewed, patient interviewed and anesthestic plan with risks, benefits, and alternatives discussed, and informed consent obtained. NPO per Anesth. Guidelines: Yes ASA Physical Status: ASA1 Normal Healthy Anesthetic Plan: GA Bene/Risks/Altern/Consents: Yes HP Complete Prior to Induction: Yes Brian Barbour MD September 23, 2016 06:37
[2016-09-23] MEDS ORDERED: Bupivacaine-MPF 0.5% 30 mL Inj INFILTRATE ONE (07:35)
[2016-09-23] MEDS ORDERED: Lactated Ringer's 1,000 ML IV SCH (07:44)
[2016-09-23] MEDS ORDERED: Lactated Ringer's 500 ML IV PRN (07:44)
[2016-09-23] MEDS ORDERED: EPHEDrine Sulfate 50 mg/mL Inj IVPUSH PRN (07:45)
[2016-09-23] MEDS ORDERED: Ondansetron 2 mg/mL 2 mL Inj IVPUSH PRN (07:45)
[2016-09-23] MEDS ORDERED: Phenylephrine 10,000 mCg/mL Inj IVPUSH PRN (07:45)
[2016-09-23] MEDS ORDERED: Dexamethasone 4 mg/mL Inj IVPUSH PRN (07:45)
[2016-09-23] MEDS ORDERED: fentaNYL-PF 50 mCg/mL 2 mL Inj IVPUSH PRN (07:45)
[2016-09-23] MEDS ORDERED: Labetalol 5 mg/mL 4 mL Inj IV PRN (07:45)
[2016-09-23] MEDS ORDERED: Atropine 0.4 mg/mL Inj IVPUSH PRN (07:45)
[2016-09-23] MEDS ORDERED: HYDROmorphone 1 mg/mL Inj IVPUSH PRN (07:45)
[2016-09-23] MEDS ORDERED: MetoCLOpramide 5 mg/mL 2 mL Inj IVPUSH PRN (07:45)
[2016-09-23] MEDS ORDERED: oxyCODONE-Acetamin 5-325 mg Tablet PO PRN (09:25)
[2016-09-23] MEDS ORDERED: Ondansetron 8 mg ODT Tablet PO PRN (09:25)
--- NOTE | 2016-09-23 10:19 | PCM.ANEP1 ---
Post Anesthesia PACU Phase 1 Assessment Vital Signs Vital Signs Date Time Temp Pulse Resp B/P Pulse Ox O2 Delivery O2 Flow Rate FiO2 09/23/16 10:08 36.4 72 16 155/69 97 Room Air 09/23/16 10:00 74 17 132/60 96 09/23/16 09:45 69 16 146/57 96 Room Air 09/23/16 09:30 71 10 142/67 100 Simple Mask 5 09/23/16 09:25 69 10 142/67 100 Simple Mask 5 09/23/16 09:23 36.4 68 11 136/76 100 Simple Mask 5 09/23/16 05:57 36.2 81 16 132/71 98 Room Air Anesthetic Administered: GA Level of Alertness: Sleeping, hard to arouse BOWER's with Equal Strength: Yes Pain: No Nausea or Vomiting: No CV Function & Hydration Stable: No Airway Device: Oralpharangeal Airway Oxygen Delivery: Simple Mask Lungs: Clear to Auscultation, Normal Air Movement PACU Phase 2 Assessment Complications: No Follow up Care: No Patient Instructions Provided: N/A Brian Barbour MD September 23, 2016 10:19
--- NOTE | 2016-09-23 10:25 | OP ---
[address] [address] OPERATIVE REPORT PATIENT: EPIFANIO FONSECA : 1935 MR#: [id number] ADMIT: 09/23/2016 JOB ID: [id number] DATE OF SURGERY: 09/23/2016 SURGEON: Yaz Wilson M.D. PREOPERATIVE DIAGNOSIS(ES): Left hydrocele. POSTOPERATIVE DIAGNOSIS(ES): 1. Left hydrocele. 2. Left testicular cancer. PROCEDURE: 1. Left hydrocelectomy. 2. Left radical orchiectomy with retroperitoneal dissection of cord. ANESTHESIA: General anesthetic, Dr. Barbour. DESCRIPTION OF PROCEDURE: Under general anesthetic, the patient was placed in a supine position. Genitalia prepped and draped in a sterile manner. A left scrotal incision was made and carried down to the level of the tunica vaginalis. The tunica vaginalis and testicle were delivered from the wound. Upon opening the tunica vaginalis, the testicle was clearly abnormal. Approximately 300 cc of maureen fluid was drained. It was decided, at this point, to perform an orchiectomy. The remaining fibrous attachments to the testicle were divided down to the spermatic cord which was quite thick at this point. The cord was crossclamped and divided and suture ligated with 0 silk. A frozen section was sent from the cord along with the testicle. 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 After achieving hemostasis, the wound was closed in multiple layers with 3-0 chromic. The patient was left in the supine position. The lower abdomen prepped and draped in a sterile manner. A left inguinal incision was made and the spermatic cord exposed. The spermatic cord was grossly abnormal throughout the inguinal canal. The stump of the spermatic cord was delivered from the scrotum and the cord was dissected free up to the inferior epigastric vessels. At this point, the cord was still 3 cm across. External and internal oblique muscles were divided for a distance of approximately 10 cm and the cord dissected from the retroperitoneum. At approximate the lower pole of the kidney, the cord was still substantial. It was elected to terminate the dissection at this point. The cord was then crossclamped using a vascular stapler reinforced with 0 silk. The wound was then closed in layers using 2-0 Vicryl for fascia, 3-0 chromic for subcutaneous tissues and metal clips for skin. The patient tolerated the procedure well. ESTIMATED BLOOD LOSS: 100 cc. The patient left the operating room in good condition under light anesthesia. Tumor markers will be drawn in recovery.
[2016-10-08] MEDS ORDERED: POLY17PO6 PO (14:33)
== END 2016-09-23 23:59 | disposition home or self-care (01) ==
LOC: SAS 05:35
PROVIDERS: ATTEND Urology
DX: C85.18 Unspecified B-cell lymphoma, lymph nodes of multiple sites (principal); N43.3 Hydrocele, unspecified; I35.0 Nonrheumatic aortic (valve) stenosis; E78.00 Pure hypercholesterolemia, unspecified; N28.1 Cyst of kidney, acquired; Z79.82 Long term (current) use of aspirin
CPT/HCPCS: 36415; 54530; 55040; 82105; 83615; 84702; J0690; J1100; J2405; J3010; J7120

== ENCOUNTER 2016-10-11 06:25 | Day surgery (SDC) | payer MEDICARE ==
[~2016-10-11] VITALS: Ht 177.8 cm; Wt 68.0 kg
[2016-10-11] VITALS (7 sets, daily range): BP systolic 97–128; BP diastolic 56–77; PULSE 64–74; RESP 12–20; O2SAT 98–100
[~2016-10-11 06:25] MED LIST changes: +POLY17PO6 PO
[2016-10-11] MEDS ORDERED: Dexamethasone 4 mg/mL Inj ONE (06:26)
[2016-10-11] MEDS ORDERED: Propofol 10,000 mCg/mL 20 mL Inj ONE (06:26)
[2016-10-11] MEDS ORDERED: fentaNYL-PF 50 mCg/mL 2 mL Inj ONE (06:26)
[2016-10-11] MEDS ORDERED: Ondansetron 2 mg/mL 2 mL Inj ONE (06:26)
[2016-10-11] MEDS ORDERED: CeFAZolin Inj 2 gm / 50mL D5W IV ONE (07:00)
[2016-10-11] MEDS ORDERED: Lactated Ringer's 1,000 ML IV ONE (07:23)
[2016-10-11] MEDS ORDERED: CeFAZolin Inj 2 GM in IV Premix 1 EACH IV ONE (08:00)
[2016-10-11] MEDS ORDERED: Bupivacaine-MPF 0.25% 30 mL Inj INFILTRATE ONE (08:57)
[2016-10-11] MEDS ORDERED: Lactated Ringer's 500 ML IV PRN (08:58)
[2016-10-11] MEDS ORDERED: HepLOK Flush 100 unit/mL 5 mL Inj IVFLUSH ONE ×2 (08:58)
[2016-10-11] MEDS ORDERED: Lactated Ringer's 1,000 ML IV SCH (08:58)
[2016-10-11] MEDS ORDERED: fentaNYL-PF 50 mCg/mL 2 mL Inj IVPUSH PRN (09:00)
[2016-10-11] MEDS ORDERED: Phenylephrine 10,000 mCg/mL Inj IVPUSH PRN (09:00)
[2016-10-11] MEDS ORDERED: Labetalol 5 mg/mL 4 mL Inj IV PRN (09:00)
[2016-10-11] MEDS ORDERED: Ondansetron 2 mg/mL 2 mL Inj IVPUSH PRN (09:00)
[2016-10-11] MEDS ORDERED: EPHEDrine Sulfate 50 mg/mL Inj IVPUSH PRN (09:00)
[2016-10-11] MEDS ORDERED: Atropine 0.4 mg/mL Inj IVPUSH PRN (09:00)
[2016-10-11] MEDS ORDERED: MetoCLOpramide 5 mg/mL 2 mL Inj IVPUSH PRN (09:00)
--- NOTE | 2016-10-11 09:00 | PCM.HPANE ---
Patient Data Surgeon Admitting Provider: Attending Provider:Justyn De La Rosa MD Primary Care Physician:Panfilo Bass DO Other Provider:Marisa Oleary Anesthesia Reason for Visit Malignant Neoplasm Of Descended Left Testis Ht/WT & BMI Height (Feet): 5 Height (Inches): 10.00 Weight (Kilograms): 68.039 Body Mass Index 21.00 Allergies Coded Allergies: No Known Allergies (Verified Allergy, Unknown, 10/08/16) Past Anesthesia History Anesthesia History: Positive for:: Anesthesia Reactions ("i get a hangover after "), Denies:: Abnormal Airway, Difficult Intubation, Fam Anesthesia Reaction, Fam Malignant Hypertherm, Malignant Hyperthermia Diabetes History Hx Diabetes?: No MRSA MRSA: No Medications Blood Thinner: Aspirin Home Meds Incl Beta Lana: No Reported Medications Polyethylene Glycol 3350 (Miralax)17 Gm Powd.pack17 Gm PO DAILY 10/08/16 Melatonin/Pyridoxine (Melatonin 5 mg Tablet)1 Each Tablet1 Each PO HS 05/10/16 Aspirin 81 Mg [place]54 Mg PO DAILY Ref 0 12/03/15 History History of ENT Problems?: Yes HEENT History: Positive for:: Hearing Problem Denies:: Abnormal Airway Cataracts Difficult Intubation Dysphagia Glaucoma Sinus Problem (HX EPISTAXIS) TMJ Denture Type: None Teeth Condition: Within Normal Limits Hx of Heart Problems?: Yes Cardiovascular History: Positive for:: 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 (ECHO 05/2016)) Chest Pain (05/2016 ?ETIOLOGY) Valvular Heart Disease (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 (AORTIC STENOSIS-MILD)) Denies:: AICD Atrial Fibrillation Cardiac Surgery Congestive Heart Failure Coronary Artery Disease (NEG CARDIAC W/U 2007) Edema Heart Murmur (ECHO 05/2016 EF 60-65%) Hypertension (HYPERLIPIDEMIA) Irregular Heartbeat Pacemaker Peripheral Vascular Rheumatic Fever Thrombophlebitis Other Cardiac History: HX OF ANEMIA Hx of Respiratory Problem?: No Respiratory History: Denies:: Asthma COPD Chest Surgery Cough Dyspnea Emphysema Hemoptysis Oxygen Administration Pneumonia Pulmonary Embolism Tuberculosis Use of C-PAP Machine Use of Inhalers / NEBS Hx Neurologic Problems?: No Neurological History: Denies:: Alzheimer's Disease CVA Dementia Dizziness Headaches Multiple Sclerosis Parkinson's Disease Peripheral Neuropathy Seizures TIA Hx of GI Problems?: Yes Gastrointestinal History: Denies:: Cirrhosis Diverticulitis Gall Bladder Disease Gastroesphageal Reflux Gastrointestinal Bleeding Heartburn Hepatitis Hiatal Hernia Liver Disease Rectal Bleeding Other GI Pertinent History: S/P APPY C/OF UNINTENTIONAL WEIGHT LOSS Hx of Problems?: Yes Genitourinary History: Positive for:: Kidney Stones (REMOTE HX OF) Denies:: HX of Hemodialysis Urinary Tract Infection HX of Peritoneal Dialysis: No Male Hx: Positive for:: Prostate Problems (BPH) Scrotal Mass (LT HYDROCELE TESTICULAR LYMPHOMA/IV ACCESS=CURRENT PROBLEM ) Testicular Surgery (S/P LT ORCHIECTOMY/HYDROCELECTOMY/RETROPERIT. DISSECTION OF CORD) Skin History: Denies:: History Skin Disorders? Pressure Ulcers Hx Musculoskeletal Problems?: Yes Musculoskeletal History: Positive for:: Musculoskeletal Trauma (HX RT HAND INJURY S/P RT HAND RPR W/ FINGER AMPUTATION REVISION) Denies:: Back Injury Degenerative Joint Fibromyalgia Joint Replacement Myasthenia Gravis Osteoarthritis Rheumatoid Arthritis Systemic Lupus Hx of Psycho/Social Problems?: No Psycho Social History: Denies:: Anxiety Bipolar Disorder Hx Depression Suicide Attempt Hx Surgeries?: Yes (appendix, hand surgery,LT ORCHIECTOMY/HYDROCELECTOMY/ RETROPERIT. DISSECTION) Hx Any Other Health Problems?: Yes Other History: Positive for:: Hospitalization Denies:: Cancer Endocrine Disease Thyroid Disease History Blood Transfusions: Denies:: Accept Blood Products? Blood Transfuse Reaction Blood Transfusions Hx Diabetes: No Hx Alcohol Use: Yes (wine)Alcoholic Drinks Per Day: 2/DAYHx Substance Use: No Smoking Status: Never Smoker Have You Smoked inLast 12 mo: No Stop/Bang S-Snoring: Do You Snore Loudly: No T-Tired: feel tired, fatigued: No O-Obsered: Observed not breath: No P-Blood Pressure: treated: No B- Body Mass Index > 35 kg/m2: No A- Age over 50: Yes N- Neck Large Circumference: No G- Gender Male: Yes REYNALDO Total Score: 2 Risk Assessment Category Category 1A: Patient has history of documented sleep apnea, and HAS NOT received any narcotic, sedative or anesthesia administration during this stay. Category 1B: Patient has history of documented sleep apnea, and HAS received any narcotic , sedative or anesthesia administration during this stay Category 2: Patient has SUSPECTED Obstructive Sleep Apnea, and HAS received any narcotic , sedative or anesthesia administration during this stay. Category 3: Patient has SUSPECTED Obstructive Sleep Apnea and HAS NOT received narcotic, sedative or anesthesia administration during this stay. Category 4: Outpatient in Procedural Areas with known sleep apnea or who screen positive for High Risk via the STOP/BANG questionnaire. Exam Exam Vital Signs Vital Signs Date Time Temp Pulse Resp B/P Pulse Ox O2 Delivery O2 Flow Rate FiO2 10/11/16 07:08 36.3 72 14 128/68 99 Room Air General Appearance: Alert, Oriented X3, Cooperative, No Acute Distress HEENT/AIRWAY: MP 2, Neck Movement (FROM), Mouth Opening (3 FBMO) Lungs: Clear to Auscultation, Normal Air Movement Heart: Exam Unremarkable, Regular Rate/Rhythm, No Murmurs/Rubs/Gallops Meds/Labs/Diagnostics Admission Meds Current Medications Lactated Ringer's (Lr) 1,000 ml @ ud STK-MED ONCE IV Last administered on 10/11t 07:23; Start 10/11/16 at 07:23; Stop 10/11/16 at 07:24; Status DC Plan Impression Patient chart reviewed, patient interviewed and anesthestic plan with risks, benefits, and alternatives discussed, and informed consent obtained. NPO per Anesth. Guidelines: Yes ASA Physical Status: ASA3 Severe Disease Anesthetic Plan: GA Bene/Risks/Altern/Consents: Yes HP Complete Prior to Induction: Yes Panfilo Young MD Oct 11, 2016 07:48
--- NOTE | 2016-10-11 10:06 | OP ---
[address] [address] OPERATIVE REPORT PATIENT: EPIFANIO FONSECA : 1935 MR#: [id number] ADMIT: 10/11/2016 JOB ID: [id number] DATE OF SURGERY: 10/11/2016 ANESTHESIA: General. PREOPERATIVE DIAGNOSIS(ES): Testicular lymphoma. POSTOPERATIVE DIAGNOSIS(ES): Testicular lymphoma. OPERATIVE PROCEDURE: Insertion of left subclavian vein Port-A-Cath using fluoroscopy with interpretation for guidance. SURGEON: Justyn De La Rosa MD CIRCULAR SAW FILER: Dr. Fontenot MS3. COMPLICATIONS: None. ESTIMATED BLOOD LOSS: 5 mL. CONDITION: Satisfactory. SPECIMENS: None. FINDINGS: A low-profile port was inserted into the left subclavian vein without complication. INDICATIONS/SIGNIFICANT HISTORY: The patient is an 81-year-old man with a recent diagnosis of left testicular lymphoma, status post orchiectomy. He is scheduled to begin chemotherapy in the next few days. OPERATIVE TECHNIQUE: The patient was taken to the operating room and placed in supine position. General anesthesia was administered. Preoperative antibiotics were given. The neck and chest were prepped and draped in standard surgical fashion. A procedure pause was performed. The left subclavian vein was accessed on the second pause with a finder needle. A wire was inserted through the vein and position confirmed using fluoroscopy. The wire seen to course through the heart into the inferior vena cava. Local anesthetic was injected and a subcutaneous pocket was created in the left anterior chest. The low-profile Port-A-Cath was then secured in place using three 2-0 Prolene sutures. The catheter was tunneled up to the wire exit point and then inserted into the vein using Seldinger technique under fluoroscopic visualization. Good final position was confirmed. The catheter is a little bit higher than typical but still in the superior vena cava. The port aspirated and flushed nicely. This was locked with heparin. The skin was closed using 3-0 Vicryl, followed by running 4-0 Monocryl. Dermabond was applied. The entire procedure was well tolerated without complication.
--- NOTE | 2016-10-11 10:25 | OP ---
[address] [address] OPERATIVE REPORT PATIENT: EPIFANIO FONSECA : 1935 MR#: [id number] ADMIT: 10/11/2016 JOB ID: [id number] DATE OF SURGERY: 10/11/2016 ANESTHESIA: General. PREOPERATIVE DIAGNOSIS(ES): Testicular lymphoma. POSTOPERATIVE DIAGNOSIS(ES): Testicular lymphoma. OPERATIVE PROCEDURE: Insertion of left subclavian vein Port-A-Cath using fluoroscopy with interpretation. SURGEON: Justyn De La Rosa MD OFFAL ROLLER: Dr. Fontenot MS3 COMPLICATIONS: None. ESTIMATED BLOOD LOSS: 5 mL. CONDITION: Satisfactory. SPECIMENS: None. FINDINGS: A low-profile port was inserted in the left subclavian vein without complication. INDICATIONS/SIGNIFICANT HISTORY: The patient is an 81-year-old man with a recent diagnosis of testicular lymphoma. He is scheduled to begin chemotherapy in the near future. OPERATIVE TECHNIQUE: The patient was taken to the operating room and placed in supine position. General anesthesia was administered and perioperative antibiotics were given. The neck and chest were prepped and draped in standard surgical fashion. A procedure pause performed. The left subclavian vein was accessed with the second pass of the finder needle. A wire was inserted in the vein and position confirmed using fluoroscopy. The wire was seen to course through the heart and into the inferior vena cava. Local anesthetic was injected and a subcutaneous pocket was created in the left anterior chest. Low-profile port was secured in place using three 2-0 Prolene sutures. The catheter was tunneled up to the wire exit point and then inserted in the vein using the Seldinger technique under fluoroscopic visualization. Good final position was confirmed. The port aspirated and flushed nicely. This was locked with heparin. The skin was closed using 3-0 Vicryl, followed by running 4-0 Monocryl. Dermabond was applied. The entire procedure was well tolerated without complication.
--- NOTE | 2016-10-11 10:46 | DRSVH ---
PROCEDURE: X-RAY CHEST ONE VIEW, PORTABLE ([id number]) INDICATIONS: 81-year-old male with left testicular neoplasm, Port-A-Cath placement. TECHNIQUE: One view of the chest was acquired. COMPARISON: [facility], BOB, XR CHEST 2VW, 05/10/2016, 12:59. [facility] r, CR, CHEST 2VW, 09/02/2008, 10:53. FINDINGS: Surgical changes and devices: Left chest wall Port-A-Cath is now present, with tip in the upper super ior vena cava. Lungs and pleura: No pleural effusions or pneumothorax. Lungs are clear. Mediastinum: Mediastinal contours appear normal. Heart size is normal. Bones and chest wall: No suspicious bony lesions. Overlying soft tissues appear unremarkable. IMPRESSION: New left chest wall Port-A-Cath is in expected position. No pneumothorax. Dictated by: José Bray M.D. on 10/11/2016 at 9:42 Approved by: José Bray M.D. on 10/11/2016 at 9:44
--- NOTE | 2016-10-11 13:46 | PCM.ANEP1 ---
Post Anesthesia PACU Phase 1 Assessment Vital Signs Vital Signs Date Time Temp Pulse Resp B/P Pulse Ox O2 Delivery O2 Flow Rate FiO2 10/11/16 10:22 64 20 127/77 99 Room Air 10/11/16 09:50 72 16 120/72 98 Room Air 10/11/16 09:34 74 17 104/62 100 Simple Mask 8 10/11/16 09:30 65 12 97/56 100 Simple Mask 8 10/11/16 09:25 65 15 103/56 99 Simple Mask 8 10/11/16 09:22 36.4 65 19 100/59 99 Simple Mask 8 10/11/16 07:08 36.3 72 14 128/68 99 Room Air Anesthetic Administered: GA Level of Alertness: Awake, talking BOWER's with Equal Strength: Yes Pain: No Nausea or Vomiting: No CV Function & Hydration Stable: No Airway Device: na Oxygen Delivery: Room Air Lungs: Clear to Auscultation, Normal Air Movement Dermatome Level: Full Sensation PACU Phase 2 Assessment Complications: No Follow up Care: N/A Patient Instructions Provided: N/A Panfilo Young MD Oct 11, 2016 13:46
== END 2016-10-11 23:59 | disposition home or self-care (01) ==
LOC: SAS 06:25
PROVIDERS: ATTEND General Practice
DX: C83.39 Diffuse large B-cell lymphoma, extranodal and solid organ sites (principal); D64.9 Anemia, unspecified; E78.00 Pure hypercholesterolemia, unspecified; N28.1 Cyst of kidney, acquired; Z87.442 Personal history of urinary calculi; Z79.82 Long term (current) use of aspirin
CPT/HCPCS: 36561; 71010; 77001; C1788; J0690; J1100; J1642; J2405; J3010; J7120